=== PATIENT | male | born 1995 | race Caucasian/White ===

== ENCOUNTER 2019-08-31 01:35 | Emergency (ER) | payer BC ==
--- NOTE | 2019-08-31 01:42 | EDM.PDOC ---
ED HPI GENERAL MEDICAL PROBLEM - General Stated Complaint: NEEDS SHOULDER CHECKED OUT Time Seen by Provider: 08/31/19 01:40 Source of Information: Reports: Patient History Limitations: Reports: No Limitations - History of Present Illness INITIAL COMMENTS - FREE TEXT/NARRATIVE: recurrent shoulder injury. Right Shoulder Pain Score (Numeric/FACES): 4 - Related Data Allergies Allergy/AdvReac Type Severity Reaction Status Date / Time bee venom protein (honey bee) Allergy Cannot Verified 08/31/19 01:48 Remember Home Meds: Home Meds . [No Known Home Meds] 08/31/19 [History] Review of Systems - Review of Systems Review Of Systems: Comprehensive ROS is negative, except as noted in HPI. ED EXAM, GENERAL - Physical Exam Exam: See Below Exam Limited By: No Limitations General Appearance: Alert, WD/WN, Mild Distress, Moderate Distress, Other (pain) Ears: Hearing Grossly Normal Throat/Mouth: Normal Voice, No Airway Compromise Head: Atraumatic Neck: Non-Tender, Full Range of Motion Respiratory/Chest: No Respiratory Distress Cardiovascular: Regular Rate, Rhythm GI/Abdominal: Soft, Non-Tender Extremities: Limited Range of Motion, Other (right shoulder tneder R/P, NV wnl) Neurological: Alert, Oriented, Normal Cognition, Normal Gait, No Motor/Sensory Deficits Psychiatric: Tearful Skin Exam: Warm, Dry, Normal Color Lymphatic: No Adenopathy Course - Vital Signs Last Recorded V/S: Last Vital Signs Temp 35.9 C L 08/31/19 01:40 Pulse 100 08/31/19 01:40 Resp 19 08/31/19 01:40 BP 106/56 L 08/31/19 01:40 Pulse Ox 100 08/31/19 01:40 - Orders/Labs/Meds Orders: Active Orders 24 hr Category Date Time Status COMPREHENSIVE METABOLIC PN,CMP [CHEM] Stat Lab 08/31/19 01:40 Received ETOH [ETHANOL BLOOD MEDICAL] [CHEM] Stat Lab 08/31/19 01:40 Received Labs: Laboratory Tests 08/31/19 Range/Units 01:40 WBC 7.4 (5.0-10.0) 10^3/uL RBC 4.97 (4.6-6.2) 10^6/uL Hgb 15.5 (14.0-18.0) g/dL Hct 45.3 (40.0-54.0) % MCV 91.1 (80-100) fL MCH 31.2 (27.0-34.0) pg MCHC 34.2 (33.0-35.0) g/dL Plt Count 348 (150-450) 10^3/uL Neut % (Auto) 53.0 (42.2-75.2) % Lymph % (Auto) 36.6 (20.5-50.1) % Harvey % (Auto) 7.9 (2-8) % Eos % (Auto) 2.2 (1.0-3.0) % Baso % (Auto) 0.3 (0.0-1.0) % - Re-Assessments/Exams Free Text/Narrative Re-Assessment/Exam: 08/31/19 02:11 results discussed with pt. Departure - Departure Time of Disposition: 02:12 Disposition: Home, Self-Care 01 Condition: Good Clinical Impression: Fracture of clavicle Qualifiers: Encounter type: initial encounter Clavicle location: shaft Fracture type: closed Fracture alignment: displaced Laterality: right Qualified Code(s): S42.021A - Displaced fracture of shaft of right clavicle, initial encounter for closed fracture - Discharge Information Instructions: Clavicle Fracture, [id number] Forms: ED Department Discharge Additional Instructions: 1) see clinic Monday for re-exam and ORTHOPEDIC REFERRAL 2) wear clavicle splint until re-evaluated by ORTHO 3) avoid use of right shoulder 48 hours 4) recheck if have numbness or problems with right arm Sepsis Event Note - Focused Exam Vital Signs: Vital Signs Temp Pulse Resp BP Pulse Ox 08/31/19 01:40 35.9 C L 100 19 106/56 L 100 Date Exam was Performed: 08/31/19 Time Exam was Performed: 02:11 - My Orders Last 24 Hours: My Active Orders 08/31/19 01:40 COMPREHENSIVE METABOLIC PN,CMP [CHEM] Stat ETOH [ETHANOL BLOOD MEDICAL] [CHEM] Stat - Assessment/Plan Last 24 Hours: My Active Orders 08/31/19 01:40 COMPREHENSIVE METABOLIC PN,CMP [CHEM] Stat ETOH [ETHANOL BLOOD MEDICAL] [CHEM] Stat
--- NOTE | 2019-08-31 02:08 | CR ---
PROCEDURE INFORMATION: Exam: XR Right Shoulder Exam date and time: 08/31/2019 1:48 AM Age: 24 years old Clinical indication: Pain; Shoulder; Right; Additional info: Dislocation TECHNIQUE: Imaging protocol: XR Right shoulder. Views: 1 view. COMPARISON: No relevant prior studies available. FINDINGS: Bones/joints: There is an acute midshaft fracture of the right clavicle. There is 1 full bone width of downward depression of the distal fracture fragment. Soft tissues: Normal. IMPRESSION: Acute midshaft fracture of the right clavicle.
[2019-08-31 02:12] LABS: ANION GAP 17.6 mEq/L (7-13); CHLORIDE,CL 103 mmol/L (98-107); SODIUM,NA 142 mmol/L (136-145)
== END 2019-08-31 02:16 | disposition home or self-care (01) ==
LOC: DL.ED 01:35
DX: S42.021A Displaced fracture of shaft of right clavicle, initial encounter for closed fracture (principal); Z91.030 Bee allergy status; Z79.899 Other long term (current) drug therapy; X58.XXXA Exposure to other specified factors, initial encounter
CPT/HCPCS: 36415; 73020-RT; 80053; 80307; 85025; 99283-25